=== PATIENT | male | born 1980 | race Caucasian/White ===

== ENCOUNTER 2018-12-16 17:31 | Observation (INO) ==
[2018-12-16] MEDS ORDERED: ROCEPHIN VIAL 1 GRAM IVP SCH (21:07)
[2018-12-16 21:54] VITALS: BMI 31.1
[2018-12-16 21:55] LABS: BASOPHILS % (AUTO) 0.3 % (0.2-1.0); EOSINOPHILS % (AUTO) 0.4 % (0.9-2.9); HEMATOCRIT 44.1 % (42.0-54.0); HEMOGLOBIN 15.1 g/dL (13.5-18.0); LYMPHOCYTES # (AUTO) 0.4 X10^3/uL (1.3-2.9); LYMPHOCYTES % (AUTO) 11.6 % (21.0-51.0); MEAN CORPUSCULAR HEMOGLOBIN 28.9 pg (27.0-34.0); MEAN CORPUSCULAR HGB CONC 34.3 g/dL (33.0-35.0); MEAN CORPUSCULAR VOLUME 84.2 fL (80.0-100.0); MONOCYTES # (AUTO) 0.4 x10^3/uL (0.3-0.8); MONOCYTES % (AUTO) 12.4 % (0.0-13.0); NEUTROPHILS # (AUTO) 2.4 x10^3/uL (2.2-4.8); NEUTROPHILS % (AUTO) 75.3 % (42.0-75.0); PLATELET COUNT 158 X10^3/uL (150.0-450.0); RED BLOOD COUNT 5.24 X10^6/uL (4.7-6.0); RED CELL DISTRIBUTION WIDTH 18.4 % (11.6-16.5); WHITE BLOOD COUNT 3.2 X10^3/uL (3.6-10.0)
[2018-12-16 22:06] LABS: ALANINE AMINOTRANSFERASE 50 Units/L (12-78); ALBUMIN 3.5 g/dL (3.4-5.0); ALKALINE PHOSPHATASE 139 Units/L (46-116); ASPARTATE AMINO TRANSFERASE 39 Units/L (15-37); BLOOD UREA NITROGEN 12 mg/dL (7-18); CALCIUM 8.7 mg/dL (8.5-10.1); CARBON DIOXIDE 24.1 mmol/L (21-32); CHLORIDE 101 mmol/L (98-107); COR NA(FOR HYPERGLY) 136 mmol/L (136-145); CREATININE 1.68 mg/dL (0.70-1.30); SODIUM 136 mmol/L (136-145); TOTAL PROTEIN 8.1 g/dL (6.4-8.2); eGFR NON BLACK RACES 48 (>60)
--- NOTE | 2018-12-16 22:56 | RAD ---
Chest, 2 views Indication: Shortness of breath Comparison: None Findings: Mildly increased interstitial markings are noted. Cardiac silhouette size is mildly enlarged. No dense infiltrates or pleural effusion. No pneumothorax. Impression: Cardiomegaly with findings suggesting mild edema or atypical infection. Reported By:
[2018-12-17 04:20] LABS: BILIRUBIN,URINE NEGATIVE (NEGATIVE); BLOOD/HEMOGLOBIN,URINE 1+ (NEGATIVE); GLUCOSE, URINE NEGATIVE (NEGATIVE); KETONES,URINE 1+ (NEGATIVE); LEUKOCYTE ESTERASE ,URINE 1+ (NEGATIVE); NITRITES,URINE NEGATIVE (NEGATIVE); PROTEIN,URINE 2+ (NEGATIVE); UROBILINOGEN,URINE NORMAL (NORMAL)
[2018-12-17 04:26] LABS: APPEARANCE,URINE CLEAR (CLEAR); BACTERIA,URINE NEGATIVE /HPF (NEGATIVE); COLOR,URINE YELLOW (YELLOW); RBC,URINE 0-2 /HPF (0-3); SQUAMOUS EPITHELIAL CELL,UR RARE /HPF (NEGATIVE); YEAST,URINE FEW /HPF (NEGATIVE)
[2018-12-17 05:50] LABS: BASOPHILS % (AUTO) 0.5 % (0.2-1.0); EOSINOPHILS % (AUTO) 0.3 % (0.9-2.9); HEMATOCRIT 41.6 % (42.0-54.0); HEMOGLOBIN 13.9 g/dL (13.5-18.0); LYMPHOCYTES # (AUTO) 0.4 X10^3/uL (1.3-2.9); MEAN CORPUSCULAR HEMOGLOBIN 28.7 pg (27.0-34.0); MEAN CORPUSCULAR HGB CONC 33.5 g/dL (33.0-35.0); MEAN CORPUSCULAR VOLUME 85.6 fL (80.0-100.0); MEAN PLATELET VOLUME 7.6 fL (7.4-11.0); MONOCYTES # (AUTO) 0.5 x10^3/uL (0.3-0.8); MONOCYTES % (AUTO) 16.1 % (0.0-13.0); NEUTROPHILS % (AUTO) 70.1 % (42.0-75.0); PLATELET COUNT 127 X10^3/uL (150.0-450.0); RED BLOOD COUNT 4.85 X10^6/uL (4.7-6.0); RED CELL DISTRIBUTION WIDTH 18.3 % (11.6-16.5); WHITE BLOOD COUNT 2.8 X10^3/uL (3.6-10.0)
[2018-12-17 06:08] LABS: ALANINE AMINOTRANSFERASE 42 Units/L (12-78); ALBUMIN 3.1 g/dL (3.4-5.0); ALKALINE PHOSPHATASE 121 Units/L (46-116); ASPARTATE AMINO TRANSFERASE 40 Units/L (15-37); BLOOD UREA NITROGEN 12 mg/dL (7-18); CALCIUM 8.3 mg/dL (8.5-10.1); CHLORIDE 102 mmol/L (98-107); CREATININE 1.49 mg/dL (0.70-1.30); SODIUM 137 mmol/L (136-145); TOTAL PROTEIN 7.4 g/dL (6.4-8.2); eGFR NON BLACK RACES 56 (>60)
[2018-12-17 06:17] LABS: BAND NEUTROPHILS % 9 % (0-10); PLATELET MORPHOLOGY COMMENT NORMAL (NORMAL)
[2018-12-17] MEDS ORDERED: TOPROL XL PO SCH (09:00)
[2018-12-17] MEDS ORDERED: ZETIA TAB 10 MG PO SCH (09:00)
[2018-12-17] MEDS ORDERED: SIROLIMUS PO SCH (09:00)
[2018-12-17] MEDS ORDERED: PRAVACHOL PO SCH (09:00)
--- NOTE | 2018-12-17 09:08 | CT ---
History: Headache and facial swelling Study: CT of the paranasal sinuses without contrast. Sagittal and coronal reformations were provided. Comparison: None Findings: There is mucosal thickening in the right maxillary sinus inferiorly and minimal by comparison mucosal thickening in the left maxillary sinus. No fluid level is demonstrated. There is minimal mucosal thickening in the sphenoid sinus and in the left anterior ethmoid air cells. The frontal sinuses are clear. There is no bone erosion or sclerosis. Left middle and inferior turbinates are enlarged compared to right. Ostiomeatal complexes are patent but narrowed. There is minimal septal deviation of the bony nasal septum to the left. There is a small cleft in the bony palate anteriorly. Impression: Paranasal sinus disease as described with mucosal thickening but no air-fluid levels. Narrowing of the ostiomeatal complexes. Reported By:
[2018-12-17] MEDS ORDERED: ROXICODONE TAB 5 MG PO PRN (09:22)
[2018-12-17 09:28] LABS: FREE T4 (FREE THYROXINE) 0.97 ng/dL (0.76-1.46); TSH (3RD GENERATION) 1.078 uIU/mL (0.358-3.74)
[2018-12-17 09:31] LABS: TOTAL PSA 2.63 ng/mL (0.13-4.0)
--- NOTE | 2018-12-17 09:34 | RAD ---
History: Fever Study: KUB Findings: The bowel gas pattern is unremarkable. No abnormal soft tissue calcification is demonstrated. Multiple bodies are instilled with methylmethacrylate. Partially visualized are hip prostheses and extensive myositis ossific cans about the hips. Impression: Chronic findings, no acute disease demonstrated Reported By:
[2018-12-17] MEDS ORDERED: PHARMACY CONSULT - DOSE _____ XX SCH (10:00)
[2018-12-17] MEDS ORDERED: TOPROL XL ONE ×2 (10:51→20:22)
[2018-12-17] MEDS: PROTONIX TAB 40 MG PO SCH (10:55)
[2018-12-17] MEDS: NEURONTIN CAP 300 MG PO SCH ×2 (10:55→21:10)
[2018-12-17] MEDS: NORVASC TAB 5 MG PO SCH (10:55)
[2018-12-17] MEDS: FOLIC ACID TAB 1 MG PO SCH (10:55)
[2018-12-17] MEDS: ZOVIRAX PO SCH ×2 (10:56→21:07)
[2018-12-17] MEDS: ROCEPHIN VIAL 1 GRAM IVP SCH (10:59)
[2018-12-17] MEDS: ATOVAQUONE PO SCH (11:04)
[2018-12-17] MEDS: VORICONAZOLE 200 MG PO SCH ×2 (11:04→21:10)
[2018-12-17] MEDS: PATIENT'S HOME MEDICATION PO SCH (11:05)
[2018-12-17] MEDS: ZOFRAN INJ 4 MG VIAL IVP PRN (12:30)
--- NOTE | 2018-12-17 13:07 | DR.H&P ---
H&P - History & Physical for Day of: H&P Date: 12/16/18 - Chief Complaint Chief Complaint: fever, acute sinusitis - History of Present Illness History of Present Illness: Patient is a 38 year old white male that is a direct admit from Dr. Correa's office secondary to fever. 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 Does report that he is currently on immunosuppressants. Patient is being followed by [facility] in [place]. Patient presented to the office with low grade temp and complains of sinusitis since over the weekend. Patient was started on Rocephin IM followed by Augmentin but shortly after going home, the patient started running a fever of 101.5F. The reported that they were given strict parameters and would like admission for IV antibiotics. Patient will be admitted for further evaluation and treatment. - Past Medical History Past Medical History: Dyslipidemia, GERD, Hypertension Additional Medical History: Acute Myeloid Leukemia remission 2014, adrenal insufficiency - Past Surgical History Surgical History: Ortho Surgery, Tonsillectomy - Family History Family Medical History: Cancer, Coronary Artery Disease, Hypertension - Social History Alcohol Use: None Drug Use: None - Medications Home Medications: chlorhexidine Allergy (Verified 12/16/18 21:07) dapsone Allergy (Verified 12/16/18 21:07) sulfamethoxazole [From Bactrim] Allergy (Verified 12/16/18 21:07) trimethoprim [From Bactrim] Allergy (Verified 12/16/18 21:07) CONTINUE taking the following medications acyclovir 400 mg PO BID 12/16/18 [History] amlodipine [Norvasc] 5 mg PO DAILY 12/16/18 [History] aspirin 81 mg PO DAILY 12/16/18 [History] atovaquone 10 ml PO DAILY 12/16/18 [History] brimonidine 1 drp OPHTHALMIC (EYE) TID 12/16/18 [History] calcitonin (salmon) 1 spray INTRANASAL DAILY 12/16/18 [History] calcium citrate-vitamin D2 600 mg PO BID 12/16/18 [History] cholecalciferol (vitamin D3) [Vitamin D3] 3 cap PO DAILY 12/16/18 [History] citalopram 20 mg PO DAILY 12/16/18 [History] cyanocobalamin (vitamin B-12) 1 ml SUBCUT WEEKLY 12/16/18 [History] ezetimibe 10 mg PO DAILY 12/16/18 [History] folic acid 1 mg PO DAILY 12/16/18 [History] gabapentin 300 mg PO BID 12/16/18 [History] hydrocortisone 30 mg PO HS 12/16/18 [History] hydrocortisone 60 mg PO AC 12/16/18 [History] metoprolol succinate 200 mg PO DAILY 12/16/18 [History] oxycodone 10 mg PO Q4HR PRN 12/16/18 [History] pantoprazole 40 mg PO DAILY 12/16/18 [History] pravastatin 40 mg PO DAILY 12/16/18 [History] prochlorperazine maleate [Compazine] 10 mg PO PRN PRN 12/16/18 [History] sirolimus [Rapamune] 0.1 ml PO Q OTHER DAY 12/16/18 [History] testosterone cypionate 0.4 ml SUBCUT DIRECTED 12/16/18 [History] voriconazole 200 mg PO BID 12/16/18 [History] - Review of Systems Constitutional: See HPI, Fever Eyes: See HPI ENT: See HPI Respiratory: See HPI Cardiovascular: See HPI Gastrointestinal: See HPI Genitourinary: See HPI Musculoskeletal: See HPI Skin: See HPI Neurological: See HPI - Physical Exam Vital Signs: Temperature 99.4 F Pulse Rate [Right Radial] 96 Respiratory Rate 18 Blood Pressure [Left Arm] 139/66 O2 Sat by Pulse Oximetry 98 Oriented: Normal Eyes: Normal Ear: Swelling (erythematous) Nose: Normal Throat: Red Respiratory: Clear Throughout Cardiovascular: Normal : Normal Auscultation: Bowel Sounds: Normal Palpation: Normal Tenderness: Normal Skin: Normal Musculoskeletal: Normal Psychiatric: Normal Mood Description: Calm Affect: Flat Speech Pattern: Clear - Assessment/Plan (1) Fever Status: Acute Plan: IV Rocephin. BC x2. Chest Xray. UA. See chart for further orders - Allergies Allergies/Adverse Reactions: Allergies Allergy/AdvReac Type Severity Reaction Status Date / Time chlorhexidine Allergy Verified 12/16/18 21:07 dapsone Allergy Verified 12/16/18 21:07 sulfamethoxazole Allergy Verified 12/16/18 21:07 [From Bactrim] trimethoprim [From Bactrim] Allergy Verified 12/16/18 21:07
[2018-12-17] MEDS: ALPHAGAN 0.2% OPHTH SOLN OP SCH ×2 (14:52→21:12)
[2018-12-17] MEDS: NS 1000 ML 1,000 ML IV SCH (21:05)
[2018-12-17] MEDS: PRAVACHOL PO SCH (21:08)
[2018-12-17] MEDS: TOPROL XL PO SCH (21:09)
[2018-12-17] MEDS: ZETIA TAB 10 MG PO SCH (21:11)
[2018-12-18] MEDS: NS 1000 ML 1,000 ML IV SCH ×2 (01:14→17:59)
[2018-12-18] MEDS: ZOFRAN INJ 4 MG VIAL IVP PRN (01:14)
[2018-12-18 05:15] LABS: BASOPHILS % (AUTO) 0.3 % (0.2-1.0); EOSINOPHILS % (AUTO) 0.4 % (0.9-2.9); HEMATOCRIT 42.9 % (42.0-54.0); HEMOGLOBIN 14.3 g/dL (13.5-18.0); LYMPHOCYTES # (AUTO) 0.5 X10^3/uL (1.3-2.9); MEAN CORPUSCULAR HEMOGLOBIN 28.5 pg (27.0-34.0); MEAN CORPUSCULAR HGB CONC 33.4 g/dL (33.0-35.0); MEAN CORPUSCULAR VOLUME 85.4 fL (80.0-100.0); MEAN PLATELET VOLUME 7.5 fL (7.4-11.0); MONOCYTES # (AUTO) 0.5 x10^3/uL (0.3-0.8); MONOCYTES % (AUTO) 14.3 % (0.0-13.0); NEUTROPHILS # (AUTO) 2.4 x10^3/uL (2.2-4.8); PLATELET COUNT 132 X10^3/uL (150.0-450.0); RED BLOOD COUNT 5.02 X10^6/uL (4.7-6.0); RED CELL DISTRIBUTION WIDTH 18.2 % (11.6-16.5); WHITE BLOOD COUNT 3.5 X10^3/uL (3.6-10.0)
[2018-12-18 05:29] LABS: ALANINE AMINOTRANSFERASE 38 Units/L (12-78); ALBUMIN 2.9 g/dL (3.4-5.0); ALKALINE PHOSPHATASE 109 Units/L (46-116); ASPARTATE AMINO TRANSFERASE 34 Units/L (15-37); BLOOD UREA NITROGEN 11 mg/dL (7-18); CALCIUM 7.8 mg/dL (8.5-10.1); CARBON DIOXIDE 24.5 mmol/L (21-32); CHLORIDE 102 mmol/L (98-107); COR CA(FOR HYPOALB) 8.7 mg/dL (8.5-10.1); COR NA(FOR HYPERGLY) 137 mmol/L (136-145); SODIUM 137 mmol/L (136-145); TOTAL PROTEIN 7.4 g/dL (6.4-8.2); eGFR NON BLACK RACES 55 (>60)
[2018-12-18] MEDS: ALPHAGAN 0.2% OPHTH SOLN OP SCH ×3 (06:05→21:03)
[2018-12-18] MEDS: FOLIC ACID TAB 1 MG PO SCH (09:06)
[2018-12-18] MEDS: PROTONIX TAB 40 MG PO SCH (09:07)
[2018-12-18] MEDS: ROCEPHIN VIAL 1 GRAM IVP SCH (09:07)
[2018-12-18] MEDS: ZOVIRAX PO SCH ×2 (09:07→21:02)
[2018-12-18] MEDS: NORVASC TAB 5 MG PO SCH (09:08)
[2018-12-18] MEDS: NEURONTIN CAP 300 MG PO SCH ×2 (09:08→21:01)
[2018-12-18] MEDS: LOVENOX INJ 40 MG SYR SC SCH (09:09)
[2018-12-18] MEDS: PATIENT'S HOME MEDICATION PO SCH ×3 (09:10→21:02)
[2018-12-18] MEDS: ATOVAQUONE PO SCH (09:20)
[2018-12-18] MEDS: VORICONAZOLE 200 MG PO SCH ×2 (09:21→21:03)
[2018-12-18] MEDS ORDERED: MAGIC MOUTHWASH PO PRN (10:28)
[2018-12-18 13:23] LABS: CRYPTOSPORIDIUM PARVUM ANTIGEN NEGATIVE (NEGATIVE); GIARDIA LAMBLIA ANTIGEN NEGATIVE (NEGATIVE)
--- NOTE | 2018-12-18 17:51 | PCM.PROG ---
Progress Note - Progress Note for Day of Date of Exam: 12/17/18 - Subjective Subjective: 38 WM DIRECT ADMIT ON EVENING OF 12/17 WITH FEVER OF UNKNOWN ORIGIN. PT HAS EXTENSIVE PMH OF CML, STEM CELL TRANSPLANT, BILATERAL HIP REPLACEMENT, ADRENAL INSUFFICIENCY. PT IS ON IMMUNOSUPPRESSIVE THERAPY FOLLOWED LOCALLY BY DR KRAFT HEMO/ONCO IN [place] AND PRIMARY TRANSPLANT TEAM IS LOCATED IN [facility]. PT ONLY COMPLAINT THIS AM IS SLIGHT HEADACHE WROSE OVER FORHEAD. PT HAS HAD FEVER > 101 SINCE ADMISSION. WBC 2.7, HGB 13.9 THIS AM. BUN 12/CREAT 1.49 SLIGHTLY IMPROVED SINCE ADMISSION. PT IS CURRENTLY ON IV ROCEPHIN WITH GENTLE IV HYDRATION, WE HAVE RESUMED PT'S HOME MEDICATION. CT HEAD REVEALED MILD SINUS DISEASE, PT DENIES ANY RESP SYMPTOMS, VISION CHANGES OR SINUS/ALLERGIES SYM PTOMS. PT ALSO DENIES GI SYMPTOMS. PLAN TO OBTAIN SED RATE AND CRP, TSH, FREE T4, PSA, KUB. CXR ON ADMISSION WITHOUT ACUTE CARDIOPULMONARY ABNORMALITY. - Past Medical Family Social History Past Med/Fam/Surg Hx: No changes since H&P Allergies: Allergies chlorhexidine Allergy (Verified 12/16/18 21:07) dapsone Allergy (Verified 12/16/18 21:07) sulfamethoxazole [From Bactrim] Allergy (Verified 12/16/18 21:07) trimethoprim [From Bactrim] Allergy (Verified 12/16/18 21:07) - Review of Systems ROS: No change since H&P - Vital Signs and I&O's Vital Signs: Temperature 99.6 F Pulse Rate [Right Radial] 96 Respiratory Rate 20 Blood Pressure [Left Arm] 114/70 O2 Sat by Pulse Oximetry 96 Intake and Output: Intake & Output 12/16/18 12/17/18 12/18/18 12/19/18 11:59 11:59 11:59 11:59 Intake Total 50 / 50 1830 / 1830 960 / 960 Balance 50 / 50 1830 / 1830 960 / 960 - Physical Exam Oriented: Normal Eyes: Normal Ear: Right (MILD EDEMATOUS HELIX (CAULIFLOWER EAR) NO REDNESS, NON TENDNER) Nose: Normal Throat: Dry. negative: Exudate Respiratory: Normal Cardiovascular: Normal : Normal Auscultation: Bowel Sounds: Normal Tenderness: Normal Skin: Normal Musculoskeletal: Normal Psychiatric: Normal Mood Description: Calm Affect: Flat Speech Pattern: Clear, Appropriate - Laboratory and Diagnostics Result Diagrams: 12/18/18 04:44 12/18/18 04:44 Labs: 12/18/18 11:50 Stool - Final 12/16/18 21:41 Blood Blood Culture - Preliminary 12/16/18 21:34 Blood Blood Culture - Preliminary 12/17/18 03:24 Urine,Clean Catch Urine Culture - Preliminary 12/16/18 21:35 Sputum - Expectorated Sputum Sputum Culture - Preliminary 12/16/18 21:35 Sputum - Expectorated Sputum - Final Laboratory WBC 3.5 X10^3/uL (3.6-10.0) L 12/18/18 04:44 RBC 5.02 X10^6/uL (4.7-6.0) 12/18/18 04:44 Hgb 14.3 g/dL (13.5-18.0) 12/18/18 04:44 Hct 42.9 % (42.0-54.0) 12/18/18 04:44 MCV 85.4 fL (80.0-100.0) 12/18/18 04:44 MCH 28.5 pg (27.0-34.0) 12/18/18 04:44 MCHC 33.4 g/dL (33.0-35.0) 12/18/18 04:44 RDW 18.2 % (11.6-16.5) H 12/18/18 04:44 Plt Count 132 X10^3/uL (150.0-450.0) L 12/18/18 04:44 Plt Count Comment Adequate (ADEQUATE) 12/17/18 04:44 MPV 7.5 fL (7.4-11.0) 12/18/18 04:44 Neut % (Auto) 70.0 % (42.0-75.0) 12/18/18 04:44 Lymph % (Auto) 15.0 % (21.0-51.0) L 12/18/18 04:44 [place] % (Auto) 14.3 % (0.0-13.0) H 12/18/18 04:44 Eos % (Auto) 0.4 % (0.9-2.9) L 12/18/18 04:44 Baso % (Auto) 0.3 % (0.2-1.0) 12/18/18 04:44 Neut # (Auto) 2.4 x10^3/uL (2.2-4.8) 12/18/18 04:44 Lymph # (Auto) 0.5 X10^3/uL (1.3-2.9) L 12/18/18 04:44 [place] # (Auto) 0.5 x10^3/uL (0.3-0.8) 12/18/18 04:44 Eos # (Auto) 0.0 x10^3/uL (0.0-0.2) 12/18/18 04:44 Baso # (Auto) 0.0 X10^3/uL (0.0-0.1) 12/18/18 04:44 Absolute Nucleated RBC 0.3 /100WBC 12/18/18 04:44 Total Counted 100 12/17/18 04:44 Neutrophils % (Manual) 67 % (39-76) 12/17/18 04:44 Band Neutrophils % 9 % (0-10) 12/17/18 04:44 Lymphocytes % (Manual) 11 % (13-43) L 12/17/18 04:44 Monocytes % (Manual) 13 % (4-9) H 12/17/18 04:44 Plt Morphology Comment Normal (NORMAL) 12/17/18 04:44 RBC Morphology Normal (NORMAL) 12/17/18 04:44 ESR 41 MM/HOUR (0-15) H 12/17/18 04:44 Sodium 137 mmol/L (136-145) 12/18/18 04:44 Corrected Sodium 137 mmol/L (136-145) 12/18/18 04:44 Potassium 4.4 mmol/L (3.5-5.1) 12/18/18 04:44 Chloride 102 mmol/L (98-107) 12/18/18 04:44 Carbon Dioxide 24.5 mmol/L (21-32) 12/18/18 04:44 BUN 11 mg/dL (7-18) 12/18/18 04:44 Creatinine 1.50 mg/dL (0.70-1.30) H 12/18/18 04:44 Est GFR (MDRD) Af Amer > 60 (>60) 12/18/18 04:44 Est GFR (MDRD) Non-Af 55 (>60) L 12/18/18 04:44 Glucose 116 mg/dL (65-99) H 12/18/18 04:44 Calcium 7.8 mg/dL (8.5-10.1) L 12/18/18 04:44 Corrected Calcium 8.7 mg/dL (8.5-10.1) 12/18/18 04:44 Total Bilirubin 0.30 mg/dL (0.2-1.0) 12/18/18 04:44 AST 34 Units/L (15-37) 12/18/18 04:44 ALT 38 Units/L (12-78) 12/18/18 04:44 Alkaline Phosphatase 109 Units/L (46-116) 12/18/18 04:44 C-Reactive Protein 58.50 mg/L (0-3.0) H 12/17/18 04:44 Total Protein 7.4 g/dL (6.4-8.2) 12/18/18 04:44 Albumin 2.9 g/dL (3.4-5.0) L 12/18/18 04:44 Globulin 4.5 g/dL (2.5-4.5) 12/18/18 04:44 Albumin/Globulin Ratio 0.6 Ratio (1.1-2.1) L 12/18/18 04:44 Total PSA 2.63 ng/mL (0.13-4.0) 12/17/18 04:44 Free T4 0.97 ng/dL (0.76-1.46) 12/17/18 04:44 TSH 3rd Generation 1.078 uIU/mL (0.358-3.74) 12/17/18 04:44 Specimen Type Clean catch urine 12/17/18 03:24 Urine Color Yellow (YELLOW) 12/17/18 03:24 Urine Appearance Clear (CLEAR) 12/17/18 03:24 Urine pH 6.0 (5.0 - 8.0) 12/17/18 03:24 Ur Specific [place] 1.015 (1.000-1.030) 12/17/18 03:24 Urine Protein 2+ (NEGATIVE) 12/17/18 03:24 Urine Glucose (UA) Negative (NEGATIVE) 12/17/18 03:24 Urine Ketones 1+ (NEGATIVE) 12/17/18 03:24 Urine Occult Blood 1+ (NEGATIVE) 12/17/18 03:24 Urine Nitrite Negative (NEGATIVE) 12/17/18 03:24 Urine Bilirubin Negative (NEGATIVE) 12/17/18 03:24 Urine Urobilinogen Normal (NORMAL) 12/17/18 03:24 Ur Leukocyte Esterase 1+ (NEGATIVE) 12/17/18 03:24 Urine RBC 0-2 /HPF (0-3) 12/17/18 03:24 Urine WBC 0-2 /HPF (0-5) 12/17/18 03:24 Ur Squamous Epith Cells Rare /HPF (NEGATIVE) 12/17/18 03:24 Urine Bacteria Negative /HPF (NEGATIVE) 12/17/18 03:24 Urine Yeast Few /HPF (NEGATIVE) 12/17/18 03:24 Ur Culture Indicated? No/not indicated 12/17/18 03:24 Stool Description 50g semi formed 12/18/18 11:50 Stl Occult Blood (IFOB) Negative (NEGATIVE) 12/18/18 11:50 Stool for White Cells Negative (NEGATIVE) 12/18/18 11:50 Stl C. diff Tox B Gene Negative (NEGATIVE) 12/18/18 11:50 Stl C. diff 027-NAP1-BI Negative (NEGATIVE) 12/18/18 11:50 Cryptosporid parvum Ag Negative (NEGATIVE) 12/18/18 11:50 Giardia lamblia Ag Negative (NEGATIVE) 12/18/18 11:50 Influenza Type A (PCR) Negative (NEGATIVE) 12/16/18 23:25 Influenza Type B (PCR) Negative (NEGATIVE) 12/16/18 23:25 - Plan (1) Fever of unknown origin Status: Acute Plan: BLOOD SPUTUM URINE CULTURES COLLECTED, RESULTS PENDING. STOOL STUDIES ORDERED. CRP, SED RATE TODAY. CT HEAD/SINUS ORDERED FOR THIS AM, CXR ON ADMISS ION. REPEAT AM LABS, ENCOURAGE ORAL HYDRATION, IV ROCEPHIN. KUB, GENTLE IV HYDRATION, MONITOR I & OS (2) Sinusitis Status: Acute (3) [id number] disease of liver Status: Acute (4) Adrenal insufficiency Status: Acute (5) CML in remission Status: Acute
[2018-12-18] MEDS ORDERED: TOPROL XL ONE (20:30)
[2018-12-18] MEDS: PRAVACHOL PO SCH (20:58)
[2018-12-18] MEDS: TOPROL XL PO SCH ×2 (20:59→21:00)
[2018-12-18] MEDS: ZETIA TAB 10 MG PO SCH (21:01)
[2018-12-19] MEDS: ALPHAGAN 0.2% OPHTH SOLN OP SCH ×3 (05:46→21:28)
[2018-12-19] MEDS: NS 1000 ML 1,000 ML IV SCH ×2 (05:47→19:14)
[2018-12-19] MEDS: LOVENOX INJ 40 MG SYR SC SCH (08:41)
[2018-12-19] MEDS: PROTONIX TAB 40 MG PO SCH (08:47)
[2018-12-19] MEDS: NEURONTIN CAP 300 MG PO SCH ×2 (08:47→21:25)
[2018-12-19] MEDS: FOLIC ACID TAB 1 MG PO SCH (08:47)
[2018-12-19] MEDS: NORVASC TAB 5 MG PO SCH (08:47)
[2018-12-19] MEDS: ZOVIRAX PO SCH ×2 (08:48→21:27)
[2018-12-19] MEDS: ATOVAQUONE PO SCH (08:51)
[2018-12-19] MEDS: PATIENT'S HOME MEDICATION PO SCH ×3 (08:52→21:26)
[2018-12-19] MEDS: VORICONAZOLE 200 MG PO SCH ×2 (08:53→21:27)
[2018-12-19] MEDS: ROCEPHIN VIAL 1 GRAM IVP SCH (11:13)
--- NOTE | 2018-12-19 15:43 | PCM.PROG ---
Progress Note - Progress Note for Day of Date of Exam: 12/18/18 - Subjective Subjective: 38 WM DIRECT ADMIT ON EVENING OF 12/17 WITH FEVER OF UNKNOWN ORIGIN. PT HAS EXTENSIVE PMH OF CML, STEM CELL TRANSPLANT, BILATERAL HIP REPLACEMENT, ADRENAL INSUFFICIENCY. PT IS ON IMMUNOSUPPRESSIVE THERAPY FOLLOWED LOCALLY BY DR KRAFT HEMO/ONCO IN [place] AND PRIMARY TRANSPLANT TEAM IS LOCATED IN [facility]. PT ONLY COMPLAINT THIS AM IS SLIGHT HEADACHE WROSE OVER FORHEAD. PT HAS HAD FEVER > 101 SINCE ADMISSION. WBC 2.7, HGB 13.9 THIS AM. BUN 12/CREAT 1.49 SLIGHTLY IMPROVED SINCE ADMISSION. PT IS CURRENTLY ON IV ROCEPHIN WITH GENTLE IV HYDRATION, WE HAVE RESUMED PT'S HOME MEDICATION. CT HEAD REVEALED SINUS DISEASE/ MUCOUSAL THICKENING, PT DENIES ANY RESP SYMPTOMS, VISION CHANGES OR SIN US/ALLERGIES SYMPTOMS. PT ALSO DENIES GI SYMPTOMS. WBC THIS AM 3.5, CREAT 1.5. PT REPORTS ONLY SLIGHT HEADACHE OVER FOREHEAD WITH FEVER. DUE TO PT'S HX OF STEM CELL TRANSPLANT AND GRAFT VS HOST DISEASE PT HAS BEEN REFERRED TO [facility] IN [place], [facility]. PT HAD BEEN ACCEPTED, BED PLACEMENT PENDING. - Past Medical Family Social History Past Med/Fam/Surg Hx: No changes since H&P Allergies: Allergies chlorhexidine Allergy (Verified 12/16/18 21:07) dapsone Allergy (Verified 12/16/18 21:07) sulfamethoxazole [From Bactrim] Allergy (Verified 12/16/18 21:07) trimethoprim [From Bactrim] Allergy (Verified 12/16/18 21:07) - Review of Systems ROS: No change since H&P - Vital Signs and I&O's Vital Signs: Temperature 98.7 F Pulse Rate [Right Radial] 96 Respiratory Rate 20 Blood Pressure [Left Arm] 111/61 O2 Sat by Pulse Oximetry 95 Intake and Output: Intake & Output 12/17/18 12/18/18 12/19/18 12/20/18 11:59 11:59 11:59 11:59 Intake Total 50 / 50 1830 / 1830 1600 / 1600 1140 / 1140 Balance 50 / 50 1830 / 1830 1600 / 1600 1140 / 1140 - Physical Exam Oriented: Normal Eyes: Normal Ear: Right (MILD EDEMATOUS HELIX (CAULIFLOWER EAR) NO REDNESS, NON TENDNER) Nose: Normal Throat: Dry. negative: Exudate Respiratory: Normal Cardiovascular: Normal : Normal Auscultation: Bowel Sounds: Normal Tenderness: Normal Skin: Normal Musculoskeletal: Normal Psychiatric: Normal Mood Description: Calm Affect: Flat Speech Pattern: Clear, Appropriate - Laboratory and Diagnostics Result Diagrams: 12/18/18 04:44 12/18/18 04:44 Labs: 12/18/18 11:50 Stool Stool Culture - Preliminary 12/18/18 11:50 Stool - Final 12/17/18 03:24 Urine,Clean Catch Urine Culture - Final 12/16/18 21:35 Sputum - Expectorated Sputum Sputum Culture - Final Klebsiella Pneumoniae 12/16/18 21:35 Sputum - Expectorated Sputum - Final 12/16/18 21:41 Blood Blood Culture - Preliminary 12/16/18 21:34 Blood Blood Culture - Preliminary Laboratory WBC 3.5 X10^3/uL (3.6-10.0) L 12/18/18 04:44 RBC 5.02 X10^6/uL (4.7-6.0) 12/18/18 04:44 Hgb 14.3 g/dL (13.5-18.0) 12/18/18 04:44 Hct 42.9 % (42.0-54.0) 12/18/18 04:44 MCV 85.4 fL (80.0-100.0) 12/18/18 04:44 MCH 28.5 pg (27.0-34.0) 12/18/18 04:44 MCHC 33.4 g/dL (33.0-35.0) 12/18/18 04:44 RDW 18.2 % (11.6-16.5) H 12/18/18 04:44 Plt Count 132 X10^3/uL (150.0-450.0) L 12/18/18 04:44 Plt Count Comment Adequate (ADEQUATE) 12/17/18 04:44 MPV 7.5 fL (7.4-11.0) 12/18/18 04:44 Neut % (Auto) 70.0 % (42.0-75.0) 12/18/18 04:44 Lymph % (Auto) 15.0 % (21.0-51.0) L 12/18/18 04:44 [place] % (Auto) 14.3 % (0.0-13.0) H 12/18/18 04:44 Eos % (Auto) 0.4 % (0.9-2.9) L 12/18/18 04:44 Baso % (Auto) 0.3 % (0.2-1.0) 12/18/18 04:44 Neut # (Auto) 2.4 x10^3/uL (2.2-4.8) 12/18/18 04:44 Lymph # (Auto) 0.5 X10^3/uL (1.3-2.9) L 12/18/18 04:44 [place] # (Auto) 0.5 x10^3/uL (0.3-0.8) 12/18/18 04:44 Eos # (Auto) 0.0 x10^3/uL (0.0-0.2) 12/18/18 04:44 Baso # (Auto) 0.0 X10^3/uL (0.0-0.1) 12/18/18 04:44 Absolute Nucleated RBC 0.3 /100WBC 12/18/18 04:44 Total Counted 100 12/17/18 04:44 Neutrophils % (Manual) 67 % (39-76) 12/17/18 04:44 Band Neutrophils % 9 % (0-10) 12/17/18 04:44 Lymphocytes % (Manual) 11 % (13-43) L 12/17/18 04:44 Monocytes % (Manual) 13 % (4-9) H 12/17/18 04:44 Plt Morphology Comment Normal (NORMAL) 12/17/18 04:44 RBC Morphology Normal (NORMAL) 12/17/18 04:44 ESR 41 MM/HOUR (0-15) H 12/17/18 04:44 Sodium 137 mmol/L (136-145) 12/18/18 04:44 Corrected Sodium 137 mmol/L (136-145) 12/18/18 04:44 Potassium 4.4 mmol/L (3.5-5.1) 12/18/18 04:44 Chloride 102 mmol/L (98-107) 12/18/18 04:44 Carbon Dioxide 24.5 mmol/L (21-32) 12/18/18 04:44 BUN 11 mg/dL (7-18) 12/18/18 04:44 Creatinine 1.50 mg/dL (0.70-1.30) H 12/18/18 04:44 Est GFR (MDRD) Af Amer > 60 (>60) 12/18/18 04:44 Est GFR (MDRD) Non-Af 55 (>60) L 12/18/18 04:44 Glucose 116 mg/dL (65-99) H 12/18/18 04:44 Calcium 7.8 mg/dL (8.5-10.1) L 12/18/18 04:44 Corrected Calcium 8.7 mg/dL (8.5-10.1) 12/18/18 04:44 Total Bilirubin 0.30 mg/dL (0.2-1.0) 12/18/18 04:44 AST 34 Units/L (15-37) 12/18/18 04:44 ALT 38 Units/L (12-78) 12/18/18 04:44 Alkaline Phosphatase 109 Units/L (46-116) 12/18/18 04:44 C-Reactive Protein 58.50 mg/L (0-3.0) H 12/17/18 04:44 Total Protein 7.4 g/dL (6.4-8.2) 12/18/18 04:44 Albumin 2.9 g/dL (3.4-5.0) L 12/18/18 04:44 Globulin 4.5 g/dL (2.5-4.5) 12/18/18 04:44 Albumin/Globulin Ratio 0.6 Ratio (1.1-2.1) L 12/18/18 04:44 Total PSA 2.63 ng/mL (0.13-4.0) 12/17/18 04:44 Free T4 0.97 ng/dL (0.76-1.46) 12/17/18 04:44 TSH 3rd Generation 1.078 uIU/mL (0.358-3.74) 12/17/18 04:44 Specimen Type Clean catch urine 12/17/18 03:24 Urine Color Yellow (YELLOW) 12/17/18 03:24 Urine Appearance Clear (CLEAR) 12/17/18 03:24 Urine pH 6.0 (5.0 - 8.0) 12/17/18 03:24 Ur Specific [place] 1.015 (1.000-1.030) 12/17/18 03:24 Urine Protein 2+ (NEGATIVE) 12/17/18 03:24 Urine Glucose (UA) Negative (NEGATIVE) 12/17/18 03:24 Urine Ketones 1+ (NEGATIVE) 12/17/18 03:24 Urine Occult Blood 1+ (NEGATIVE) 12/17/18 03:24 Urine Nitrite Negative (NEGATIVE) 12/17/18 03:24 Urine Bilirubin Negative (NEGATIVE) 12/17/18 03:24 Urine Urobilinogen Normal (NORMAL) 12/17/18 03:24 Ur Leukocyte Esterase 1+ (NEGATIVE) 12/17/18 03:24 Urine RBC 0-2 /HPF (0-3) 12/17/18 03:24 Urine WBC 0-2 /HPF (0-5) 12/17/18 03:24 Ur Squamous Epith Cells Rare /HPF (NEGATIVE) 12/17/18 03:24 Urine Bacteria Negative /HPF (NEGATIVE) 12/17/18 03:24 Urine Yeast Few /HPF (NEGATIVE) 12/17/18 03:24 Ur Culture Indicated? No/not indicated 12/17/18 03:24 Stool Description 50g semi formed 12/18/18 11:50 Stl Occult Blood (IFOB) Negative (NEGATIVE) 12/18/18 11:50 Stool for White Cells Negative (NEGATIVE) 12/18/18 11:50 Stl C. diff Tox B Gene Negative (NEGATIVE) 12/18/18 11:50 Stl C. diff [id number]-BI Negative (NEGATIVE) 12/18/18 11:50 Cryptosporid parvum Ag Negative (NEGATIVE) 12/18/18 11:50 Giardia lamblia Ag Negative (NEGATIVE) 12/18/18 11:50 Influenza Type A (PCR) Negative (NEGATIVE) 12/16/18 23:25 Influenza Type B (PCR) Negative (NEGATIVE) 12/16/18 23:25 - Plan (1) Fever of unknown origin Status: Acute Plan: BLOOD SPUTUM URINE CULTURES COLLECTED, RESULTS PENDING. STOOL STUDIES ORDERED. CRP, SED RATE TODAY. CT HEAD/SINUS ORDERED FOR THIS AM, CXR ON ADMISSION. REPEAT AM LABS, ENCOURAGE ORAL HYDRATION, IV ROCEPHIN. KUB, GENTLE IV HYDRATION, MONITOR I & OS (2) Sinusitis Status: Acute (3) [id number] disease of liver Status: Acute (4) Adrenal insufficiency Status: Acute (5) CML in remission Status: Acute
--- NOTE | 2018-12-19 16:03 | RAD ---
History: Fever and congestion Study: PA and lateral chest Comparison: December 16 Findings: There is unchanged moderate cardiomegaly. The lungs are clear. There is no edema or effusion. There are bilateral shoulder prostheses. There is no pneumothorax. Impression: Unchanged cardiomegaly, resolution of previously demonstrated mild vascular congestion Reported By:
[2018-12-19 16:07] LABS: BASOPHILS % (AUTO) 0.3 % (0.2-1.0); EOSINOPHILS % (AUTO) 0.1 % (0.9-2.9); HEMATOCRIT 41.5 % (42.0-54.0); HEMOGLOBIN 13.9 g/dL (13.5-18.0); LYMPHOCYTES # (AUTO) 0.4 X10^3/uL (1.3-2.9); LYMPHOCYTES % (AUTO) 15.5 % (21.0-51.0); MEAN CORPUSCULAR HEMOGLOBIN 28.6 pg (27.0-34.0); MEAN CORPUSCULAR HGB CONC 33.6 g/dL (33.0-35.0); MEAN PLATELET VOLUME 7.4 fL (7.4-11.0); MONOCYTES # (AUTO) 0.2 x10^3/uL (0.3-0.8); MONOCYTES % (AUTO) 9.6 % (0.0-13.0); NEUTROPHILS # (AUTO) 1.9 x10^3/uL (2.2-4.8); NEUTROPHILS % (AUTO) 74.5 % (42.0-75.0); PLATELET COUNT 133 X10^3/uL (150.0-450.0); RED BLOOD COUNT 4.88 X10^6/uL (4.7-6.0); RED CELL DISTRIBUTION WIDTH 17.9 % (11.6-16.5); WHITE BLOOD COUNT 2.6 X10^3/uL (3.6-10.0)
[2018-12-19 16:16] LABS: ALANINE AMINOTRANSFERASE 39 Units/L (12-78); ALKALINE PHOSPHATASE 108 Units/L (46-116); ASPARTATE AMINO TRANSFERASE 38 Units/L (15-37); BLOOD UREA NITROGEN 11 mg/dL (7-18); CALCIUM 7.9 mg/dL (8.5-10.1); CARBON DIOXIDE 22.5 mmol/L (21-32); CHLORIDE 103 mmol/L (98-107); COR CA(FOR HYPOALB) 8.7 mg/dL (8.5-10.1); COR NA(FOR HYPERGLY) 141 mmol/L (136-145); CREATININE 1.51 mg/dL (0.70-1.30); SODIUM 139 mmol/L (136-145); TOTAL PROTEIN 7.3 g/dL (6.4-8.2); eGFR NON BLACK RACES 55 (>60)
[2018-12-19 21:00] VITALS: BP 123/70
[2018-12-19] MEDS ORDERED: TOPROL XL ONE (21:03)
[2018-12-19] MEDS: ZETIA TAB 10 MG PO SCH (21:27)
[2018-12-19] MEDS: TOPROL XL PO SCH (21:27)
[2018-12-19] MEDS: PRAVACHOL PO SCH (21:27)
== END 2018-12-19 22:50 | disposition short-term general hospital (02) ==
LOC: MED/SURG
PROVIDERS: ADMIT Internal Medicine; ATTEND Internal Medicine
DX: I10 Essential (primary) hypertension; B96.1 Klebsiella pneumoniae [K. pneumoniae] as the cause of diseases classified elsewhere; R51 Headache; R50.9 Fever, unspecified; D89.810 Acute graft-versus-host disease; K21.9 Gastro-esophageal reflux disease without esophagitis; R79.82 Elevated C-reactive protein (CRP); R70.0 Elevated erythrocyte sedimentation rate; J01.90 Acute sinusitis, unspecified; Z85.6 Personal history of leukemia; E78.2 Mixed hyperlipidemia; E27.40 Unspecified adrenocortical insufficiency
CPT/HCPCS: 36415; 70486; 71020; 71046; 74000; 74018; 80053; 81001; 82270; 82533; 83630; 84153; 84439; 84443; 85025; 85652; 86140; 87040; 87045; 87070; 87077; 87086; 87186; 87205; 87328; 87329; 87427; 87449; 87493; 87502; 87899; 96367; 96372; 96374; A4222; G0378; J0696; J1650; J2405; J7030